=== PATIENT | female | born 1975 | race Caucasian/White ===

== ENCOUNTER 2022-01-06 10:38 | Emergency (ER) | payer OTHER ==
[2022-01-06] MEDS ORDERED: IBUPROFEN600 MG PO (13:51)
== END 2022-01-06 14:05 | disposition home or self-care (01) ==
LOC: ER1 10:38
DX: S99.911A Unspecified injury of right ankle, initial encounter (principal); S89.91XA Unspecified injury of right lower leg, initial encounter; M25.461 Effusion, right knee; V29.9XXA Motorcycle rider (driver) (passenger) injured in unspecified traffic accident, initial encounter; Y93.55 Activity, bike riding; Y92.410 Unspecified street and highway as the place of occurrence of the external cause
CPT/HCPCS: 70450; 72125; 73564; 73590; 73610; 99284